=== PATIENT | female | born 1960 | race Caucasian/White ===

== ENCOUNTER 2017-11-04 15:03 | Emergency (ER) | payer BC ==
[2017-11-04] MEDS: KETOROLAC 30 MG INJ IM (16:23)
== END 2017-11-04 17:27 | disposition home or self-care (01) ==
LOC: FTE 15:03
DX: S89.92XA Unspecified injury of left lower leg, initial encounter (principal); I10 Essential (primary) hypertension; J45.909 Unspecified asthma, uncomplicated; W06.XXXA Fall from bed, initial encounter; Y92.9 Unspecified place or not applicable; Z79.82 Long term (current) use of aspirin; Z79.4 Long term (current) use of insulin
CPT/HCPCS: 29505; 73562; 96372; 99284-25

== ENCOUNTER 2017-11-24 15:59 | Emergency (ER) | payer BC ==
[2017-11-24] MEDS: KETOROLAC 60 MG INJ IM (17:53)
[2017-11-24] MEDS: HYDROCODONE/APAP (5/325) TAB PO (17:53)
== END 2017-11-24 18:13 | disposition home or self-care (01) ==
LOC: FTE 15:59
DX: M25.562 Pain in left knee (principal); J45.909 Unspecified asthma, uncomplicated; I10 Essential (primary) hypertension; Z79.4 Long term (current) use of insulin; Z79.82 Long term (current) use of aspirin
CPT/HCPCS: 96372; 99284-25